=== PATIENT | female | born 1935 | race Caucasian/White ===

== ENCOUNTER 2018-06-24 05:11 | Day surgery (SDC) | payer MEDICARE, OTHER ==
[2018-06-24] MEDS ORDERED: TROP 1%/CYCLOPEN 1%/PHENYL 2% DROPS ONE (08:41)
[2018-06-24] MEDS ORDERED: PROPARACAINE 0.5% OPHTH SOL 15 ML BTTL ONE (08:41)
[2018-06-24] MEDS ORDERED: MIDAZOLAM INJ 2 MG/2 ML VIAL ONE (10:03)
[2018-06-24] MEDS ORDERED: PROPARACAINE 0.5% OPHTH SOL 15 ML BTTL LEFT_EYE ONE (10:08)
[2018-06-24] MEDS ORDERED: DEXAMETHASONE 0.1% OPHTH SOL 1 DROP LEFT_EYE ONE ×2 (10:19→10:41)
[2018-06-24] MEDS ORDERED: LIDOCAINE 1% 2 ML VIAL INJ ONE (10:19)
[2018-06-24] MEDS ORDERED: BRIMONIDINE 0.2% OPHTH DROPS LEFT_EYE ONE ×2 (10:19→10:41)
[2018-06-24] MEDS ORDERED: TOBRAMYCIN SULF 0.3 % OPHT SOL 1 DROP LEFT_EYE ONE ×2 (10:19→10:41)
== END 2018-06-24 11:15 | disposition home or self-care (01) ==
LOC: AMB 05:11
PROVIDERS: ATTEND Ophthalmology
DX: H25.9 Unspecified age-related cataract (principal); I10 Essential (primary) hypertension; Z79.899 Other long term (current) drug therapy
CPT/HCPCS: 00142; 66984; J2250

== ENCOUNTER 2018-07-08 05:30 | Day surgery (SDC) | payer MEDICARE ==
[2018-07-08] MEDS ORDERED: MOXIFLOXACIN HCL (OPHTH) 1 DROP DROPS ONE (05:51)
[2018-07-08] MEDS ORDERED: PROPARACAINE 0.5% OPHTH SOL 15 ML BTTL ONE (05:52)
[2018-07-08] MEDS ORDERED: TROP 1%/CYCLOPEN 1%/PHENYL 2% DROPS ONE (05:52)
[2018-07-08] MEDS ORDERED: MIDAZOLAM INJ 2 MG/2 ML VIAL ONE (06:54)
[2018-07-08] MEDS ORDERED: LIDOCAINE 1% MPF 5 ML VIAL INJ ONE ×2 (09:17→09:22)
[2018-07-08] MEDS ORDERED: BRIMONIDINE 0.2% OPHTH DROPS RIGHT_EYE ONE ×2 (09:18→09:35)
[2018-07-08] MEDS ORDERED: TOBRAMYCIN SULF 0.3 % OPHT SOL 1 DROP RIGHT_EYE ONE ×2 (09:18→09:35)
[2018-07-08] MEDS ORDERED: DEXAMETHASONE 0.1% OPHTH SOL 1 DROP RIGHT_EYE ONE ×2 (09:18→09:35)
[2018-07-08] MEDS ORDERED: MOXIFLOXACIN HCL (OPHTH) 1 DROP DROPS RIGHT_EYE ONE ×2 (09:18→09:35)
== END 2018-07-08 10:10 | disposition home or self-care (01) ==
LOC: AMB 05:30
PROVIDERS: ATTEND Ophthalmology
DX: H25.11 Age-related nuclear cataract, right eye (principal); I10 Essential (primary) hypertension
CPT/HCPCS: 00142; 66984; J2250